=== PATIENT | female | born 1985 | race Two or more races ===

== ENCOUNTER 2024-02-08 12:37 | Emergency (ER) | payer BC ==
[~2024-02-08] VITALS: Ht 162.6 cm; Wt 59.9 kg
[2024-02-08 12:59] LABS: BASOPHILS % (AUTO) 0.7 % (0.0-2.0); EOSINOPHILS % (AUTO) 0.7 % (0.0-6.0); HEMATOCRIT 35 % (33-45); HEMOGLOBIN 11.4 g/dL (11.5-14.8); LYMPHOCYTES # (AUTO) 1.8 K/uL (0.8-4.8); LYMPHOCYTES % (AUTO) 32.2 % (20.0-44.0); MEAN CORPUSCULAR HEMOGLOBIN 27 PG (26.0-33.0); MEAN CORPUSCULAR HGB CONC 33 g/dl (31.0-36.0); MEAN CORPUSCULAR VOLUME 82 fL (82-100); MONOCYTES # (AUTO) 0.4 K/uL (0.1-1.30); MONOCYTES % (AUTO) 6.2 % (2.0-12.0); NEUTROPHILS # (AUTO) 3.4 K/uL (1.8-8.9); NEUTROPHILS % (AUTO) 60.2 % (43.0-81.0); PLATELET COUNT (AUTO) 180 K/uL (150-450); RED BLOOD CELL COUNT(AUTO) 4.29 MIL/uL (4.0-5.2); RED CELL DISTRIBUTION WIDTH 13.8 % (11.5-15.0); WHITE BLOOD COUNT (AUTO) 5.7 K/uL (4.3-11.0)
[2024-02-08 13:03] LABS: PREGNANCY TEST URINE QUAL NEGATIVE (NEGATIVE)
[2024-02-08 13:04] LABS: APPEARANCE,URINE Clear (CLEAR); BILIRUBIN,URINE Negative (NEGATIVE); BLOOD, URINE Moderate Ery/uL (NEGATIVE); COLOR,URINE YELLOW (YELLOW); KETONES,URINE Negative (NEGATIVE); LEUKOCYTE ESTERASE ,URINE Negative (NEGATIVE); NITRITE, URINE Negative (NEGATIVE); PROTEIN,URINE Negative (NEGATIVE); UGLUCOSE Negative (NEGATIVE); UROBILINOGEN,URINE 0.2 EU/dL (0.2)
[2024-02-08 13:11] LABS: CALCIUM, SERUM 9.2 mg/dL (8.5-10.1); CREATININE 0.7 mg/dL (0.6-1.3); POTASSIUM 4.2 mmol/L (3.5-5.1)
[2024-02-08 13:15] LABS: ADD URINE CULTURE NO; BACTERIA,URINE 1+ /HPF (None Seen); MUCUS,URINE Rare /LPF (None Seen); WBC,URINE 0-2 /HPF (0-3)
[2024-02-08 13:16] LABS: ALBUMIN 4.1 g/dL (3.4-5.0); BILIRUBIN,DIRECT 0.1 mg/dL (0.0-0.2); BILIRUBIN,TOTAL 0.4 mg/dL (0.2-1.0); TOTAL PROTEIN, SERUM 7.8 g/dL (6.4-8.2)
[2024-02-08] MEDS ORDERED: ONDANSETRON HCL/PF 4 MG/2 ML VIAL ONE (13:24)
[2024-02-08] MEDS: IV NS 0.9% 1,000 ML BAG IV ONE (13:34)
[2024-02-08] MEDS: ONDANSETRON HCL/PF 4 MG/2 ML VIAL IVP ONE (13:35)
[2024-02-08] MEDS ORDERED: FAMOTIDINE/PF INJ 20 MG/2 ML VIAL IV ONE (13:37)
[2024-02-08] MEDS ORDERED: LIDOCAINE VISCOUS 2% UD 15 ML UDC ONE (13:37)
[2024-02-08] MEDS ORDERED: MAG HYDROX/AL HYDROX/SIMETH 30 ML UDC ONE (13:37)
[2024-02-08] MEDS: LIDOCAINE VISCOUS 2% UD 15 ML UDC MM ONE (13:41)
[2024-02-08] MEDS: MAG HYDROX/AL HYDROX/SIMETH 30 ML UDC PO ONE (13:41)
[2024-02-08] MEDS: FAMOTIDINE/PF INJ 20 MG/2 ML VIAL IV ONE (13:41)
[2024-02-08] MEDS ORDERED: FAMO-131 PO (14:32)
[2024-02-08] MEDS ORDERED: ONDA4TAB5 PO (14:32)
[2024-02-08] MEDS ORDERED: OMEP20TA20 PO (14:32)
[2024-02-08 14:46] VITALS: BP 131/62; TEMP 98.7; O2SAT 100
== END 2024-02-08 14:48 | disposition home or self-care (01) ==
LOC: ER 12:52
DX: R10.13 Epigastric pain (principal); R11.0 Nausea; R10.2 Pelvic and perineal pain
CPT/HCPCS: 99284; 96374; 96361; 96375; 85025; 80048; 83690; 80076; 84703; 81001; 36415; J3490; J2405; J7030